=== PATIENT | female | born 1995 | race Caucasian/White ===

== ENCOUNTER 2024-01-04 21:59 | Emergency (ER) | payer SELFPAY ==
[~2024-01-04] VITALS: Ht 160 cm; Wt 74.8 kg
[2024-01-04 22:48] VITALS: BP_SYST 120; PULSE 73; RESP 20; TEMP 98.1; O2SAT 98
[2024-01-04 23:26] LABS: BILIRUBIN,URINE NEGATIVE (NEGATIVE); BLOOD, URINE NEGATIVE (NEGATIVE); COLOR,URINE YELLOW (YELLOW); GLUCOSE,URINE NEGATIVE (NEGATIVE); KETONES,URINE NEGATIVE (NEGATIVE); LEUKOCYTE ESTERASE ,URINE TRACE (NEGATIVE); NITRITE, URINE NEGATIVE (NEGATIVE); PH,URINE 6.5 (5.0-8.0); PROTEIN URINE NEGATIVE (NEGATIVE); UROBILINOGEN,URINE 0.2 (0.2-1.0)
[2024-01-04 23:46] LABS: CLARITY/URINE HAZY (CLEAR)
[2024-01-04 23:47] LABS: BACTERIA,URINE RARE /HPF (None Seen); RBC,URINE 0-3 /HPF (0-3)
[2024-01-05] MEDS: KETOROLAC TROMETHAMINE 60 MG/2 ML VIAL IM ONE (01:51)
[2024-01-05] MEDS ORDERED: HYDR-3917 PO (02:06)
[2024-01-05] MEDS ORDERED: IBUP-1969 PO (02:06)
[2024-01-05] MEDS ORDERED: CIPR500T5 PO (02:06)
[2024-01-05 02:22] VITALS: BP_SYST 120; PULSE 73; RESP 20; TEMP 98.1; O2SAT 98
== END 2024-01-05 02:15 | disposition home or self-care (01) ==
LOC: SED 21:59
DX: N39.0 Urinary tract infection, site not specified (principal); R10.30 Lower abdominal pain, unspecified; R03.0 Elevated blood-pressure reading, without diagnosis of hypertension; Z90.49 Acquired absence of other specified parts of digestive tract; Z88.0 Allergy status to penicillin
CPT/HCPCS: 99283; 81001; 81025; 96372; J1885; 81000; 81015